=== PATIENT | male | born 1980 | race Caucasian/White ===

== ENCOUNTER 2022-01-25 09:37 | Emergency (ER) | payer SELFPAY ==
[2022-01-25 12:02] LABS: BILIRUBIN,URINE NEGATIVE (NEGATIVE); CLARITY,URINE CLEAR (CLEAR); GLUCOSE, URINE (UA) NEGATIVE (NEGATIVE); KETONES,URINE (UA) NEGATIVE (NEGATIVE); LEUKOCYTE ESTERASE, URINE NEGATIVE (NEGATIVE); NITRITE,URINE NEGATIVE (NEGATIVE); OCCULT BLOOD,URINE NEGATIVE (NEGATIVE); PROTEIN,URINE NEGATIVE (NEGATIVE); UROBILINOGEN,URINE 0.2 (NORMAL) E.U./dL (NORMAL)
[2022-01-25] MEDS ORDERED: PANTOPRAZOLE 40 MG VIAL IVP STA (12:09)
--- NOTE | 2022-01-25 12:22 | ED Physician Documentation ---
History of Present Illness - Stated complaint Stated Complaint: VOMITTING - Chief complaint Chief Complaint: Abd Pain - History obtained from History obtained from: Patient, Family - History of Present Illness Timing: Enter time, Today Pain level max: 0 Pain level now: 0 - Additonal information Additional information: Patient is a 41-year-old male who presents to the emergency department with daily vomiting for the past several years. He states this morning when he woke up there was bright red blood in the emesis. Came to the emergency department for evaluation. Recently moved here from [place]. Does not have a local PCP yet. He does use marijuana several times daily. No fever. No chills. Does not have nausea and vomiting throughout the day. No headaches. He does drink a large amount of coffee. He does not drink alcohol or smoke. No significant NSAID use. Has occasional abdominal pain with the vomiting. Nothing makes it better or worse. Review of Systems Constitutional: denies: Fever, Chills GI: reports: Vomiting Skin: denies: Rash Musculoskeletal: denies: Neck pain, Back pain Neurologic: denies: Headache PD PAST MEDICAL HISTORY - Past Medical History Past Medical History: Yes Cardiovascular: Hypertension - Past Surgical History Past Surgical History: No - Present Medications Home Medications: Ambulatory Orders Medication Instructions Recorded Confirmed Dicyclomine [Bentyl] 10 mg PO QID PRN #30 cap 01/25/22 Esomeprazole Magnesium [Nexium] 40 mg PO DAILY #30 cap 01/25/22 Sucralfate [Carafate] 1 gm PO ACHS #60 tablet 01/25/22 Valsartan 160 mg PO DAILY 01/25/22 01/25/22 - Allergies Allergies/Adverse Reactions: Allergies Allergy/AdvReac Type Severity Reaction Status Date / Time erythromycin base Allergy Itching Verified 01/25/22 09:46 - Social History Does the pt smoke?: No Does the pt drink ETOH?: No Substance Use and Type: Marijuana - Family History Family history: reports: Non contributory PD ED PE NORMAL - Vitals Vital signs reviewed: Yes - General General: Alert and oriented X 3, No acute distress, Well developed/nourished - HEENT HEENT: PERRL, Moist mucous membranes - Neck Neck: Supple, no meningeal sign - Cardiac Cardiac: RRR, Strong equal pulses - Respiratory Respiratory: No respiratory distress, Clear bilaterally - Abdomen Abdomen: Soft, Non tender, Non distended - Back Back: No CVA TTP - Derm Derm: Warm and dry, No rash - Neuro Neuro: Alert and oriented X 3 - Psych Psych: Normal mood, Normal affect Results - Vitals Vitals: Vital Signs - 24 hr 01/25/22 01/25/22 09:42 13:00 Temperature 36.5 C 36.5 C Heart Rate 82 80 Respiratory 16 16 Rate Blood Pressure 143/99 H 138/88 H O2 Saturation 99 100 Oxygen O2 Source Room air - Labs Labs: Laboratory Tests 01/25/22 01/25/22 01/25/22 11:56 12:20 12:20 WBC 7.5 RBC 5.03 Hgb 15.5 Hct 44.4 MCV 88.3 MCH 30.8 MCHC 34.9 RDW 12.4 Plt Count 219 MPV 9.1 Neut # (Auto) 4.0 Lymph # (Auto) 2.7 [place] # (Auto) 0.5 Eos # (Auto) 0.2 Baso # (Auto) 0.0 Absolute Nucleated RBC 0.00 Nucleated RBC % 0.0 Sodium 138 Potassium 3.8 Chloride 102 Carbon Dioxide 28 Anion Gap 8.0 BUN 21 H Creatinine 1.1 Estimated GFR (MDRD) 74 L Glucose 83 Calcium 9.7 Total Bilirubin 0.5 AST 23 ALT 27 Alkaline Phosphatase 62 Total Protein 8.2 Albumin 4.7 Globulin 3.5 Albumin/Globulin Ratio 1.3 Lipase 51 Urine Color YELLOW Urine Clarity CLEAR Urine pH 6.0 Ur Specific [place] 1.020 Urine Protein NEGATIVE Urine Glucose (UA) NEGATIVE Urine Ketones NEGATIVE Urine Occult Blood NEGATIVE Urine Nitrite NEGATIVE Urine Bilirubin NEGATIVE Urine Urobilinogen 0.2 (NORMAL) Ur Leukocyte Esterase NEGATIVE Ur Microscopic Review NOT INDICATED Urine Culture Comments NOT INDICATED - Rads (name of study) head ct Radiology: Final report received, EMP read contemporaneously, See rad report PD MEDICAL DECISION MAKING - ED course Complexity details: reviewed results, re-evaluated patient, considered differential, d/w patient, d/w family ED course: Patient is well-appearing, nontoxic. Afebrile. No significant lab abnormalities. Head CT was performed given the daily morning vomiting to exclude any tumor. There is no tumor present. Eating and drinking without difficulty here. We will treat for possible gastritis versus ulcer as he does drink a large amount of coffee. We will place him on medication for this at home as well. We will have him follow-up with a new primary care provider as well as surgery or GI for an endoscopy. Patient counseled regarding signs and symptoms for which I believe and urgent re-evaluation would be necessary. Patient with good understanding of and agreement to plan and is comfortable going home at this time This document was made in part using voice recognition software. While efforts are made to proofread this document, sound alike and grammatical errors may occur. No evidence of esophageal varices, esophageal rupture. No peritonitis Departure - Departure Disposition: 01 Home, Self Care Clinical Impression: Vomiting Qualifiers: Vomiting type: unspecified Nausea presence: without nausea Qualified Code(s): R11.11 - Vomiting without nausea Condition: Good Instructions: ED Bleed UGI Stable, ED Nausea Vomiting Follow-Up: [facility] [Provider Group] [facility] [place] [Provider Group] [facility] [place] [Provider Group] Srinivasan Sanchez MD [Provider Admit Priv/Credential] - Prescriptions: Dicyclomine [Bentyl] 10 mg PO QID PRN #30 cap PRN Reason: Abdominal Pain Sucralfate [Carafate] 1 gm PO ACHS #60 tablet Esomeprazole Magnesium [Nexium] 40 mg PO DAILY #30 cap Comments: Please follow-up with your primary care provider for further care. Dr. Sanchez is a surgeon on the [place] who can perform an endoscopy to evaluate for potential ulcers and/or gastritis. Please avoid caffeine as much as possible, spicy foods, fried foods. Your prescriptions were sent to [facility] in [place]. Discharge Date/Time: 01/25/22 13:45
[2022-01-25 12:32] LABS: BASOPHILS % (AUTO) 0.5 %; EOSINOPHILS # (AUTO) 0.2 10^3/uL (0.0-0.7); EOSINOPHILS % (AUTO) 2.9 %; HCT - HEMATOCRIT 44.4 % (42.0-52.0); HGB - HEMOGLOBIN 15.5 g/dL (14.0-18.0); LYMPHOCYTES # (AUTO) 2.7 10^3/uL (1.5-3.5); LYMPHOCYTES % (AUTO) 36.4 %; MEAN CORPUSCULAR HEMOGLOBIN 30.8 pg (27.0-31.0); MEAN CORPUSCULAR HGB CONC 34.9 g/dL (32.0-36.0); MEAN CORPUSCULAR VOLUME 88.3 fL (80.0-94.0); MEAN PLATELET VOLUME 9.1 fL (7.4-11.4); MONOCYTES # (AUTO) 0.5 10^3/uL (0.0-1.0); MONOCYTES % (AUTO) 6.7 %; NEUTROPHILS % (AUTO) 53.2 %; PLT - PLATELET COUNT 219 10^3/uL (130-450); RED BLOOD COUNT 5.03 10^6/uL (4.70-6.10); RED CELL DISTRIBUTION WIDTH 12.4 % (12.0-15.0); WHITE BLOOD COUNT 7.5 x10^3/uL (4.8-10.8)
[2022-01-25 12:41] LABS: ALBUMIN 4.7 g/dL (3.2-5.5); ALBUMIN/GLOBULIN RATIO 1.3 (1.0-2.2); BILIRUBIN,TOTAL 0.5 mg/dL (0.2-1.0); CALCIUM 9.7 mg/dL (8.5-10.3); CREATININE 1.1 mg/dL (0.6-1.2); POTASSIUM 3.8 mmol/L (3.5-5.0); TOTAL PROTEIN 8.2 g/dL (6.7-8.2)
--- NOTE | 2022-01-25 12:50 | CT Report ---
PROCEDURE: HEAD WO INDICATIONS: daily morning vomiting for years TECHNIQUE: Noncontrast 4.5 mm thick angled axial sections acquired from the foramen magnum to the vertex. For r adiation dose reduction, the following was used: automated exposure control, adjustment of mA and/or kV according to patient size. COMPARISON: None. FINDINGS: Image quality: Excellent. CSF spaces: Basal cisterns are patent. No extra-axial fluid collections. Ventricles are normal in size and shape. Brain: No midline shift. No intracranial masses or hemorrhage. Zelaya-white matter interface is norm al. Skull and face: Calvarium and visualized facial bones are intact, without suspicious lesions. Sinuses: Mucosal thickening in bilateral ethmoid sinuses are seen. Bilateral mastoids are well aerate d. IMPRESSION: No CT evidence of acute intracranial abnormalities. Mild bilateral ethmoid sinusitis. If indicated, MRI of brain can be done for further evaluation. Reviewed by: Artie Sexton MD on 01/25/2022 12:48 PM PDT Approved by: Artie Sexton MD on 01/25/2022 12:48 PM PDT Station ID: [id number]
[2022-01-25 13:34] VITALS: BP 138/88
== END 2022-01-25 13:45 | disposition home or self-care (01) ==
LOC: ED 09:37
DX: R11.11 Vomiting without nausea (principal)
CPT/HCPCS: 36415; 80053; 81001; 81003; 83690; 85025; 87086; 99283; 99284

== ENCOUNTER 2022-02-25 14:46 | Outpatient (CLI) | payer OTHER ==
--- NOTE | 2022-02-25 09:26 | XRAY Report ---
PROCEDURE: Finger(s) LT INDICATIONS: LEFT INDEX FINGER INJURY TECHNIQUE: AP hand, 2 views of the left third finger(s) acquired. COMPARISON: None FINDINGS: Bones: There is no evidence for acute fracture or dislocation involving the left third finger. There is dorsal angulation the of the left third DIP joint which may represent ligamentous injury. If furt her evaluation clinically indicated a MRI of the left third finger may be of further clinical value. No suspicious bony lesions. Soft tissues: No suspicious soft tissue calcifications. IMPRESSION: 1. No evidence for acute fracture or dislocation involving the left third finger. 2. Dorsal angulation of the left third DIP joint which may represent ligamentous injury. If further e valuation clinically indicated a MRI of the left third finger may be of further clinical value. Reviewed by: Booker Read MD on 02/25/2022 9:25 AM PST Approved by: Booker Read MD on 02/25/2022 9:25 AM PST Station ID: [id number]
== END 2022-02-25 14:47 | disposition home or self-care (01) ==
LOC: DI.WOS 14:46
PROVIDERS: ATTEND Physician Assistant Surgical
DX: M20.012 Mallet finger of left finger(s) (principal)